=== PATIENT | female | born 1980 | race Asian ===

== ENCOUNTER 2018-02-21 11:16 | Emergency (ER) | payer OTHER ==
[~2018-02-21] VITALS: Ht 157.5 cm; Wt 165.6 kg
[2018-02-21] MEDS ORDERED: PARO20TA3 PO (11:20)
[2018-02-21] MEDS ORDERED: AMBIEN5 MG PO (11:21)
[2018-02-21] MEDS ORDERED: LISI20TA11 PO (11:21)
[2018-02-21] MEDS ORDERED: BUSPIRONE15 MG PO (11:22)
[2018-02-21] MEDS ORDERED: PROPRANOLOL60 MG PO (11:22)
[2018-02-21] MEDS ORDERED: ZANTAC300 MG PO (11:23)
[2018-02-21] MEDS ORDERED: PROVENTIL IN (11:24)
[2018-02-21 13:33] VITALS: BP 134/70; TEMP 97.7
== END 2018-02-21 13:35 | disposition home or self-care (01) ==
LOC: ED 11:16
DX: M79.604 Pain in right leg (principal)
CPT/HCPCS: 96372; 99283; J1885; J2175; J2550